=== PATIENT | male | born 1990 | race Caucasian/White ===

== ENCOUNTER 2016-05-13 13:30 | Emergency (ER) | payer SELFPAY ==
[2016-05-13 13:35] VITALS: BP 156/85
[2016-05-13] MEDS ORDERED: Ibuprofen TAB* 800 MG PO ONE (13:45)
--- NOTE | 2016-05-13 13:45 | ED ---
Lower Extremity - HPI Summary HPI Summary: 25M presents with left knee injury today. He was walking when he slipped on some ice and twisted his knee and fell on to it. He had ACL repair done in may last year by Dr. Lackey. He states he heard a snap when he stepped on it. He says that he has never had this pain before. He denies any numbness or tingling. - History of Current Complaint Chief Complaint: EDExtremityLower Stated Complaint: LT KNEE INJURY Time Seen by Provider: 05/13/16 13:36 Pain Intensity: 8 - Allergies/Home Medications Allergies/Adverse Reactions: Allergies Allergy/AdvReac Type Severity Reaction Status Date / Time No Known Allergies Allergy Verified 05/13/16 13:32 PMH/Surg Hx/FS Hx/Imm Hx Cardiovascular History: Denies: Hx Hypertension Musculoskeletal History: Reports: Other Musculoskeletal History - ACL repair - Surgical History Surgery Procedure, Year, and Place: RIGHT ORBITAL FX. RIGHT KNEE SURGERY Infectious Disease History: No Infectious Disease History: Denies: Traveled Outside the [place] in Last 30 Days - Family History Known Family History: Negative: Cardiac Disease - Social History Alcohol Use: None Substance Use Type: Reports: None Smoking Status (MU): Never Smoked Tobacco Review of Systems Negative: Fever Negative: Chest Pain Negative: Shortness Of Breath Positive: Myalgia - left knee All Other Systems Reviewed And Are Negative: Yes Physical Exam Triage Information Reviewed: Yes Vital Signs On Initial Exam: Initial Vitals Temp Pulse Resp BP Pulse Ox 97.7 F 92 18 156/85 99 05/13/16 13:32 05/13/16 13:32 05/13/16 13:32 05/13/16 13:32 05/13/16 13:32 Vital Signs Reviewed: Yes Appearance: Positive: Well-Appearing Skin: Positive: Warm, Dry Head/Face: Positive: Normal Head/Face Inspection Eyes: Positive: Normal, Conjunctiva Clear Respiratory/Lung Sounds: Positive: Clear to Auscultation, Breath Sounds Present Cardiovascular: Positive: Normal, RRR Musculoskeletal: Positive: Other - able to ambulate with pain, full ROM of knee with pain, no edema noted on exam. laxaity of joint noted with anterior draw but may be due to surgery Diagnostics - Vital Signs Vital Signs Temp Pulse Resp BP Pulse Ox 05/13/16 13:32 97.7 F 92 18 156/85 99 - Laboratory Lab Statement: Any lab studies that have been ordered have been reviewed, and results considered in the medical decision making process. - Radiology knee Xray Interpretation: No Acute Changes Radiology Interpretation Completed By: Radiologist Lower Extremity Course/Dx - Course Course Of Treatment: 25M presents with left knee pain s/p fall. able to ambulate with pain. no edema noted on exam. has laxaity to joint may be due to previous ACL surgery or may be new. xray normal. discussed with patient can not get an MRI urgently. told that do not use narcotics for this pain. told to follow up with whatever ortho would like placed in knee immoblizier and crutches. patient understands and agrees with plan - Diagnoses Differential Diagnosis/HQI/PQRI: Positive: Fracture (Closed), Sprain, Strain Provider Diagnoses: Left knee pain Discharge - Discharge Plan Condition: Good Disposition: HOME Patient Education Materials: Knee Pain (ED) Referrals: Rashi Reich MD [Primary Care Provider] - Bairon Renae MD [Medical Doctor] - Additional Instructions: Keep knee immobilizer on area Use crutches to get around Take ibuprofen for pain every 6 hours Follow up with ortho Ice, elevate Return to ED if develop any new or worsening symptoms
--- NOTE | 2016-05-13 14:15 | RAD ---
HISTORY: Left knee injury COMPARISONS: None VIEWS: 4, Frontal, lateral, axial, and oblique views of the left knee FINDINGS: BONE DENSITY: Normal. BONES: There is post surgical change to the distal femur and proximal tibia JOINTS: There is no arthropathy. There is no suprapatellar joint effusion or lipohemarthrosis. ALIGNMENT: There is no dislocation. SOFT TISSUES: Unremarkable. OTHER FINDINGS: None. IMPRESSION: POSTSURGICAL CHANGE. NO ACUTE OSSEOUS INJURY. IF SYMPTOMS PERSIST, RECOMMEND REPEAT IMAGING.
== END 2016-05-13 14:51 | disposition home or self-care (01) ==
LOC: ED 13:30
DX: M25.562 Pain in left knee (principal); W00.0XXA Fall on same level due to ice and snow, initial encounter; Y92.9 Unspecified place or not applicable
CPT/HCPCS: 99282

== ENCOUNTER 2017-05-15 09:54 | Emergency (ER) | payer BC ==
[2017-05-15] MEDS ORDERED: NS 0.9% 1000 ML* 2,000 ML IV ONE (10:10)
[2017-05-15] MEDS ORDERED: Morphine INJ* 4 MG/ML 1 ML SYRINGE (NEW SYRINGE VERSION) IV ONE ×2 (10:12→11:08)
[2017-05-15] MEDS ORDERED: Ondansetron INJ* 2 MG/ML VIAL IV ONE (10:12)
[2017-05-15 10:30] LABS: ABS Basophils 0.1 10^3/ul (0-0.2); ABS Eosinophils 0.2 10^3/ul (0-0.6); ABS Lymphocytes 1.8 10^3/ul (1.0-4.8); ABS Monocytes 0.6 10^3/ul (0-0.8); ABS Neutrophils 5.7 10^3/ul (1.5-7.7); ABS Nucleated RBC 0 10^3/ul; Eosinophil % 2.6 % (0-6); Hematocrit 46 % (42-52); Hemoglobin 15.8 g/dl (14.0-18.0); Mean Corpuscular HGB Conc 34 g/dl (31-36); Mean Corpuscular Hemoglobin 30 pg (27-31); Mean Corpuscular Volume 88 fL (80-94); Mean Platelet Volume 11 um3 (7.4-10.4); Nucleated Red Blood Cells % 0.1; Platelet Count 246 10^3/ul (150-450); Red Blood Count 5.22 10^6/ul (4.0-5.4); Red Cell Distribution Width 13 % (10.5-15); White Blood Count 8.4 10^3/ul (3.5-10.8)
[2017-05-15 10:39] LABS: INR 0.84 (0.77-1.02)
[2017-05-15 10:49] LABS: EGFR Non-African American 86.6 (>60)
--- NOTE | 2017-05-15 11:12 | RAD ---
Indication: Chest pain. Single frontal view of the chest performed at 1040 hours was reviewed. No prior study is available for comparison. No mediastinal shift is noted. Heart is of normal size and configuration. Lung reddy appear clear. IMPRESSION: NO ACTIVE CARDIOPULMONARY DISEASE IS NOTED.
[2017-05-15] MEDS ORDERED: diPHENhydraMINE IV* 50 MG/ML 1 ml VIAL (BENADRYL) IV ONE (11:15)
[2017-05-15] MEDS ORDERED: Iohexol 300* (CONTRAST) 10 ML SDV IV ONE (11:22)
[2017-05-15] MEDS ORDERED: Iohexol 350* (CONTRAST) 500 ML MDV IV ONE (11:40)
--- NOTE | 2017-05-15 13:02 | RAD ---
STUDY: CT angiography of the chest, abdomen and pelvis. INDICATION: Epigastric pain radiating to the back COMPARISON: CT of the chest August 28, 2011 TECHNIQUE: Multidetector CT angiography of the chest, abdomen and pelvis were obtained from the lung apices to the ischial tuberosities after the intravenous injection of 100 mL Omnipaque 350. Reformats were created in the coronal and sagittal planes. 3-D vascular imaging was created from the source images and reviewed as well. ANGIOGRAPHIC FINDINGS: The thoracic and abdominal aorta are normal in size and dimension. There is no evidence of aortic dissection. The branch vessels fill adequately with contrast. NON ANGIOGRAPHIC FINDINGS: Chest: The lungs are clear. There are no large pleural effusions. There is no mediastinal or hilar lymphadenopathy. The heart is grossly normal in appearance. Abdomen & Pelvis: The liver is homogenously hypodense relative to the spleen. There are no focal suspicious masses. The spleen, pancreas and adrenal glands are grossly normal in appearance. The gallbladder is normal. The kidneys are normal in appearance without focal mass, calcification or signs of hydronephrosis. The renal cortices enhance promptly and symmetrically on arterial phase imaging. Evaluation of the gastrointestinal tract is limited without oral contrast. The small and large bowel are not distended. The appendix is normal in appearance with gas and stool in the lumen measuring 6 mm in diameter. There is no gross retroperitoneal or mesenteric lymphadenopathy. The pelvic viscera is normal in appearance. Multilevel degenerative changes of the thoracic and lumbar spine include loss of intervertebral disc height.There are no sinister bone lesions. IMPRESSION: 1. No CT evidence of aortic aneurysm or dissection. 2. Likely hepatic steatosis.
[2017-05-15] MEDS ORDERED: Lidocaine 2% VISCOUS* 15 ML UDC PO ONE (14:52)
[2017-05-15] MEDS ORDERED: Ketorolac INJ* 30 MG/ML 1 ML VIAL IV ONE (14:52)
[2017-05-15] MEDS ORDERED: Pantoprazole IV* 40 MG IV ONE (14:52)
[2017-05-15] MEDS ORDERED: Al Hydrox/Mg Hydrox/Simet LIQ* 30 ML UDC PO ONE (14:52)
[2017-05-15 16:09] VITALS: BP 105/69
--- NOTE | 2017-05-15 18:22 | ED ---
Harris Tenorio Angela, scribed for Hayder Day MD on 05/15/17 at 1012 . HPI Chest Pain - HPI Summary HPI Summary: This pt is a 26 y/o male [facility]/o sudden onset of lower chest/ upper abd pain radiating to his back since today. He notes he feels like a "spike" going straight through his lower chest/upper abd. Pt reports his pain has been constant since his pain began. Pt additionally notes some SOB. He denies pain is worse with deep breaths. Pt denies any trauma or injury. Denies nausea, vomiting, fever. Pt has never had this pain in the past. Denies any PMHx. He does not take any medications. - History of Current Complaint Chief Complaint: EDAbdPain Hx Obtained From: Patient Onset/Duration: Started Hours Ago, Still Present Timing: Lasting Hours Current Severity: Severe Pain Intensity: 10 Pain Scale Used: 0-10 Numeric Chest Pain Location: Diffuse, Lower Sternal Chest Pain Radiates: Yes Chest Pain Radiates To:: Back Aggravating Factor(s): Nothing Alleviating Factor(s): Nothing Associated Signs and Symptoms: Positive: Chest Pain. Negative: Fever, Nausea, Vomiting - Allergy/Home Medications Allergies/Adverse Reactions: Allergies Allergy/AdvReac Type Severity Reaction Status Date / Time morphine Allergy Intermediate Rash Verified 05/15/17 12:10 PMH/Surg Hx/FS Hx/Imm Hx Endocrine/Hematology History: Denies: Hx Diabetes Cardiovascular History: Denies: Hx Hypertension Musculoskeletal History: Reports: Other Musculoskeletal History - ACL repair - Surgical History Surgery Procedure, Year, and Place: RIGHT ORBITAL FX. RIGHT KNEE SURGERY Infectious Disease History: No Infectious Disease History: Denies: Traveled Outside the [place] in Last 30 Days - Family History Known Family History: Negative: Cardiac Disease - Social History Alcohol Use: None Substance Use Type: Reports: None Smoking Status (MU): Never Smoked Tobacco Review of Systems Negative: Fever Positive: Chest Pain Positive: Shortness Of Breath Positive: Abdominal Pain Musculoskeletal: Other - back pain All Other Systems Reviewed And Are Negative: Yes Physical Exam - Summary Physical Exam Summary: General: well-appearing, moderate pain distress. Pt is holding his chest. Skin: warm, color reflects adequate perfusion, dry Head: normal Eyes: EOMI, ANDREAS ENT: normal Neck: supple, nontender Respiratory: CTA, breath sounds present Cardiovascular: RRR Abdomen: soft, nontender Bowel: present Musculoskeletal: normal, strength/ROM intact Neurological: normal, sensory/motor intact, A&O x3 Psychological: affect/mood appropriate Triage Information Reviewed: Yes Vital Signs On Initial Exam: Initial Vitals Temp Pulse Resp BP Pulse Ox 97.8 F 90 22 139/90 98 05/15/17 09:58 05/15/17 09:58 05/15/17 09:58 05/15/17 09:58 05/15/17 09:58 Vital Signs Reviewed: Yes Diagnostics - Vital Signs Vital Signs Temp Pulse Resp BP Pulse Ox 05/15/17 09:58 97.8 F 90 22 139/90 98 - Laboratory Lab Results: Lab Results 05/15/17 05/15/17 05/15/17 Range/Units 10:10 10:10 10:10 WBC 8.4 (3.5-10.8) 10^3/ul RBC 5.22 (4.0-5.4) 10^6/ul Hgb 15.8 (14.0-18.0) g/dl Hct 46 (42-52) % MCV 88 (80-94) fL MCH 30 (27-31) pg MCHC 34 (31-36) g/dl RDW 13 (10.5-15) % Plt Count 246 (150-450) 10^3/ul MPV 11 H (7.4-10.4) um3 Neut % (Auto) 68.2 (38-83) % Lymph % (Auto) 21.0 L (25-47) % [place] % (Auto) 7.4 H (0-7) % Eos % (Auto) 2.6 (0-6) % Baso % (Auto) 0.8 (0-2) % Absolute Neuts (auto) 5.7 (1.5-7.7) 10^3/ul Absolute Lymphs (auto) 1.8 (1.0-4.8) 10^3/ul Absolute Monos (auto) 0.6 (0-0.8) 10^3/ul Absolute Eos (auto) 0.2 (0-0.6) 10^3/ul Absolute Basos (auto) 0.1 (0-0.2) 10^3/ul Absolute Nucleated RBC 0 10^3/ul Nucleated RBC % 0.1 INR (Anticoag Therapy) (0.77-1.02) APTT (26.0-36.3) seconds D-Dimer, Quantitative (Less Than 230) ng/mL Sodium 135 (133-145) mmol/L Potassium 4.6 (3.5-5.0) mmol/L Chloride 104 (101-111) mmol/L Carbon Dioxide 27 (22-32) mmol/L Anion Gap 4 (2-11) mmol/L BUN 14 (6-24) mg/dL Creatinine 1.03 (0.67-1.17) mg/dL Est GFR ( Amer) 111.4 (>60) Est GFR (Non-Af Amer) 86.6 (>60) BUN/Creatinine Ratio 13.6 (8-20) Glucose 108 H (70-100) mg/dL Lactic Acid (0.5-2.0) mmol/L Calcium 10.1 (8.6-10.3) mg/dL Magnesium 2.1 (1.9-2.7) mg/dL Total Bilirubin 0.40 (0.2-1.0) mg/dL AST 21 (13-39) U/L ALT 29 (7-52) U/L Alkaline Phosphatase 62 (34-104) U/L Total Creatine Kinase 182 (10-223) U/L CK-MB (CK-2) 1.5 (0.6-6.3) ng/mL Troponin I 0.00 (<0.04) ng/mL C-Reactive Protein 2.32 (< 5.00) mg/L B-Natriuretic Peptide 14 ( - 100) pg/mL Total Protein 7.9 (6.4-8.9) g/dL Albumin 4.8 (3.2-5.2) g/dL Globulin 3.1 (2-4) g/dL Albumin/Globulin Ratio 1.5 (1-3) Lipase 26 (11.0-82.0) U/L TSH 0.58 (0.34-5.60) mcIU/mL Blood Type Antibody Screen 05/15/17 05/15/17 05/15/17 Range/Units 10:10 10:10 10:10 WBC (3.5-10.8) 10^3/ul RBC (4.0-5.4) 10^6/ul Hgb (14.0-18.0) g/dl Hct (42-52) % MCV (80-94) fL MCH (27-31) pg MCHC (31-36) g/dl RDW (10.5-15) % Plt Count (150-450) 10^3/ul MPV (7.4-10.4) um3 Neut % (Auto) (38-83) % Lymph % (Auto) (25-47) % [place] % (Auto) (0-7) % Eos % (Auto) (0-6) % Baso % (Auto) (0-2) % Absolute Neuts (auto) (1.5-7.7) 10^3/ul Absolute Lymphs (auto) (1.0-4.8) 10^3/ul Absolute Monos (auto) (0-0.8) 10^3/ul Absolute Eos (auto) (0-0.6) 10^3/ul Absolute Basos (auto) (0-0.2) 10^3/ul Absolute Nucleated RBC 10^3/ul Nucleated RBC % INR (Anticoag Therapy) 0.84 (0.77-1.02) APTT 33.9 (26.0-36.3) seconds D-Dimer, Quantitative < 200 (Less Than 230) ng/mL Sodium (133-145) mmol/L Potassium (3.5-5.0) mmol/L Chloride (101-111) mmol/L Carbon Dioxide (22-32) mmol/L Anion Gap (2-11) mmol/L BUN (6-24) mg/dL Creatinine (0.67-1.17) mg/dL Est GFR ( Amer) (>60) Est GFR (Non-Af Amer) (>60) BUN/Creatinine Ratio (8-20) Glucose (70-100) mg/dL Lactic Acid 0.8 (0.5-2.0) mmol/L Calcium (8.6-10.3) mg/dL Magnesium (1.9-2.7) mg/dL Total Bilirubin (0.2-1.0) mg/dL AST (13-39) U/L ALT (7-52) U/L Alkaline Phosphatase (34-104) U/L Total Creatine Kinase (10-223) U/L CK-MB (CK-2) (0.6-6.3) ng/mL Troponin I (<0.04) ng/mL C-Reactive Protein (< 5.00) mg/L B-Natriuretic Peptide ( - 100) pg/mL Total Protein (6.4-8.9) g/dL Albumin (3.2-5.2) g/dL Globulin (2-4) g/dL Albumin/Globulin Ratio (1-3) Lipase (11.0-82.0) U/L TSH (0.34-5.60) mcIU/mL Blood Type O Positive Antibody Screen Negative 05/15/17 Range/Units 12:50 WBC (3.5-10.8) 10^3/ul RBC (4.0-5.4) 10^6/ul Hgb (14.0-18.0) g/dl Hct (42-52) % MCV (80-94) fL MCH (27-31) pg MCHC (31-36) g/dl RDW (10.5-15) % Plt Count (150-450) 10^3/ul MPV (7.4-10.4) um3 Neut % (Auto) (38-83) % Lymph % (Auto) (25-47) % [place] % (Auto) (0-7) % Eos % (Auto) (0-6) % Baso % (Auto) (0-2) % Absolute Neuts (auto) (1.5-7.7) 10^3/ul Absolute Lymphs (auto) (1.0-4.8) 10^3/ul Absolute Monos (auto) (0-0.8) 10^3/ul Absolute Eos (auto) (0-0.6) 10^3/ul Absolute Basos (auto) (0-0.2) 10^3/ul Absolute Nucleated RBC 10^3/ul Nucleated RBC % INR (Anticoag Therapy) (0.77-1.02) APTT (26.0-36.3) seconds D-Dimer, Quantitative (Less Than 230) ng/mL Sodium (133-145) mmol/L Potassium (3.5-5.0) mmol/L Chloride (101-111) mmol/L Carbon Dioxide (22-32) mmol/L Anion Gap (2-11) mmol/L BUN (6-24) mg/dL Creatinine (0.67-1.17) mg/dL Est GFR ( Amer) (>60) Est GFR (Non-Af Amer) (>60) BUN/Creatinine Ratio (8-20) Glucose (70-100) mg/dL Lactic Acid (0.5-2.0) mmol/L Calcium (8.6-10.3) mg/dL Magnesium (1.9-2.7) mg/dL Total Bilirubin (0.2-1.0) mg/dL AST (13-39) U/L ALT (7-52) U/L Alkaline Phosphatase (34-104) U/L Total Creatine Kinase (10-223) U/L CK-MB (CK-2) (0.6-6.3) ng/mL Troponin I 0.00 (<0.04) ng/mL C-Reactive Protein (< 5.00) mg/L B-Natriuretic Peptide ( - 100) pg/mL Total Protein (6.4-8.9) g/dL Albumin (3.2-5.2) g/dL Globulin (2-4) g/dL Albumin/Globulin Ratio (1-3) Lipase (11.0-82.0) U/L TSH (0.34-5.60) mcIU/mL Blood Type Antibody Screen Result Diagrams: 05/15/17 10:10 05/15/17 10:10 Lab Statement: Any lab studies that have been ordered have been reviewed, and results considered in the medical decision making process. - Radiology Chest XR Xray Interpretation: No Acute Changes - IMPRESSION: No active cardiopulmonary disease is noted. Dr. Day has reviewed this radiology report. Radiology Interpretation Completed By: Radiologist - CT CTA chest/abdomen/pelvis CT Interpretation: No Acute Changes - IMPRESSION: 1. No CT evidence of aortic aneurysm or dissection. 2. Likely hepatic steatosis. Dr. Day has reviewed this radiology report. CT Interpretation Completed By: Radiologist - EKG 10:08 Cardiac Rate: NL EKG Rhythm: Sinus Rhythm - at [address] Segment: Normal Ectopy: None Re-Evaluation - Re-Evaluation First Eval Re-Evaluation Time: 11:15 Comment: I reviewed the lab and XR results with the pt. Pt has developed a rash on left arm at IV site. He will be given Benadryl. Second Eval Re-Evaluation Time: 14:42 Comment: I reviewed the lab and CTA results with the pt. Chest Pain Course/Dx - Course Course Of Treatment: Chest XR is negative. CTA chest/abdomen/pelvis shows 1. No CT evidence of aortic aneurysm or dissection. 2. Likely hepatic steatosis. Troponin one is 0.00. Troponin two is 0.00. Medications reviewed. BP noted and advised to follow up with PCP. DISCUSSED RESULTS WITH PATIENT. PAIN WENT AWAY AFTER GI COCKTAIL AND TORADOL IV. CAUSE OF THE PAIN APPEARS TO BE GASTRIC BUT, COULD ALSO BE BACK STRAIN. RX OMEPRAZOLE/CARAFATE/NORCO. AVOID NSAIDS. F/U PMD ; RETURN IF WORSE. - Diagnoses Provider Diagnoses: Epigastric pain, Back pain, Chest pain Discharge - Discharge Plan Condition: Stable Disposition: HOME Prescriptions: HYDROcodone/ACETAMIN 5-325 MG* [Durant 5-325 TAB*] 1 tab PO Q4H PRN #20 tab MDD 6 PRN Reason: Pain Omeprazole 20 mg PO BID #30 capsule. Sucralfate TAB* [Carafate*] 1 gm PO QID PRN #60 tab PRN Reason: Heartburn Patient Education Materials: Chest Pain (ED), Back Pain (ED), Epigastric Pain ( ED) Referrals: Rashi Reich MD [Primary Care Provider] - Additional Instructions: FOLLOW UP WITH YOUR DOCTOR. RETURN TO THE EMERGENCY DEPARTMENT FOR ANY WORSENING OF YOUR CONDITION; PAIN, BLOOD IN YOUR STOOL OR EMESIS, YOU FEEL LIKE PASSING OUT OR QUESTIONS OR CONCERNS. YOUR BLOOD PRESSURE WAS ELEVATED TODAY; FOLLOW UP WITH YOUR PRIMARY CARE DOCTOR WITHIN ONE WEEK. The documentation as recorded by the Harris faulkner Angela accurately reflects the service I personally performed and the decisions made by me, Hayder Day MD.
== END 2017-05-15 16:05 | disposition home or self-care (01) ==
LOC: ED 09:54
DX: R10.13 Epigastric pain (principal); R07.9 Chest pain, unspecified; M54.9 Dorsalgia, unspecified; R06.02 Shortness of breath
CPT/HCPCS: 36415; 71045; 71275; 74174; 80053; 82550; 82553; 83605; 83690; 83735; 83880; 84443; 84484; 85025; 85379; 85610; 85730; 86140; 86850; 86900; 86901; 93005; 96374; 96375; 99283; A9270-GY; J1200; J1885; J2270; J2405; Q9967